=== PATIENT | female | born 1985 | race Caucasian/White ===

== ENCOUNTER → 2024-01-26 11:02 | Outpatient (REF) | payer BC, SELFPAY | LOC: RAD 11:02 | PROVIDERS: ATTENDING PHYSICIAN Physician Assistant | DX: E01.0 Iodine-deficiency related diffuse (endemic) goiter (principal) | CPT/HCPCS: 76536 ==

== ENCOUNTER → 2025-02-20 09:31 | Outpatient (REF) | payer OTHER, SELFPAY | LOC: RAD 09:31 | PROVIDERS: ATTENDING PHYSICIAN Family Medicine | DX: Z00.00 Encounter for general adult medical examination without abnormal findings (principal); E66.3 Overweight; E78.00 Pure hypercholesterolemia, unspecified; E04.1 Nontoxic single thyroid nodule | CPT/HCPCS: 76536 ==

== ENCOUNTER 2025-10-03 13:14 | Emergency (ER) | payer OTHER, SELFPAY ==
[2025-10-03 13:20] VITALS: BP 129/88
[2025-10-03 13:41] LABS: Hematocrit 40.5 % (37.0-47.0); Hemoglobin 14.0 g/dL (12.0-16.0); Mean Corp Hgb Conc. 34.6 g/dL (33.0-37.0); Mean Corpuscular Volume 88.2 fL (81.0-99.0); Nucleated Red Blood Cells % 0 %; Platelet Count 246 10^3/uL (130-400); Red Cell Dist. Width 12.4 % (11.5-14.5)
[2025-10-03 13:53] VITALS: BP 115/92
[2025-10-03 13:54] LABS: HCG, Serum Qualitative Screen Negative
[2025-10-03 14:05] LABS: ALT (SGPT) 16 U/L (0-35); AST (SGOT) 24 U/L (14-36); Albumin 4.5 g/dl (3.5-5.0); Alkaline Phosphatase 72 U/L (38-126); Blood Urea Nitrogen 18 mg/dl (7-17); Calcium 9.4 mg/dl (8.4-10.2); Carbon Dioxide 25 mmol/L (22-30); Chloride 102 mmol/L (98-107); Glucose 96 mg/dl (70-99); Potassium 3.9 mmol/L (3.5-5.1); Sodium 133 mmol/L (135-145); Total Protein 7.2 g/dl (6.3-8.2); eGFR > 60.00
[2025-10-03 14:09] LABS: Troponin I < 0.012 ng/ml
--- NOTE | 2025-10-03 15:01 | ED.GENMED ---
History of Present Illness
General
Chief Complaint: Fainting Sensation
Source: patient
Exam Limitations: none
Time Seen by Provider: 10/03/25 14:30
History of Present Illness
History of Present Illness:
Note:
CHIEF COMPLAINT(S)
Rapid heart rate and feeling of lightheadedness while walking on the treadmill.
HISTORY OF PRESENT ILLNESS
The patient is a 40-year-old female with no significant past medical history who presented to the emergency department following an episode of rapid heart rate, profuse sweating, and lightheadedness while walking on the treadmill. The event occurred
suddenly while exercising with a friend at the gym. The patient reports never experiencing such episodes before and describes the symptoms with quotes like, 'I couldnt talk' and �my heart rate was super fast.� The patient denied having a device to
monitor heart rate at the time but described feeling like her heart was pounding very fast. She also noted tingling in her fingers and an inability to catch her breath, which made her feel anxious.
The patient attempted to alleviate symptoms by sitting down and drinking water. However, her heart rate did not diminish quickly, so she decided to seek medical evaluation in the ER. She notes that her symptoms began to resolve approximately 45
minutes after the onset, though she continued to feel lightheaded for a time. Prior to this incident, the patient notes usual exercise tolerance without symptoms. She acknowledges regular caffeine consumption, including an espresso in the morning
followed by iced tea, with no additional pre-workout stimulants consumed.
EXTERNAL RECORDS REVIEWED
An electrocardiogram (EKG) was performed, which appeared normal during the evaluation, although the physician expressed a desire for comparative data from the time of the episode.
PLAN
- Ordered laboratory work to evaluate electrolyte balance and other potential contributing factors.
- Discussed the possibility of wearing a Holter monitor to track heart rhythm over several days, particularly if the symptoms reoccur.
- Plan to refer the patient to a clinical case manager for further investigation, including possible stress testing or cardiac ultrasound if needed.
- Advisement to consider wearable technology that can document heart rate changes during future episodes.
- Provided education on recognizing symptoms and recommended returning immediately if symptoms worsen or recur.
DIFFERENTIAL DIAGNOSIS
The differential diagnosis includes, in no particular order and is not limited to:
1. Supraventricular Tachycardia (SVT)
2. Atrial Fibrillation (AFIB)
3. Anxiety or Panic Attack
4. Hypoglycemia
5. Hyperthyroidism
6. Dehydration
7. Inappropriate Sinus Tachycardia
8. Premature Ventricular Contractions (PVCs)
9. Vasovagal Syncope
10. Electrolyte Imbalance
EKG
My independent EKG interpretation is:
- Normal sinus rhythm
- Heart rate: 91 bpm
- Normal axis
- Normal intervals
- No acute ischemic changes
Disposition:
SUMMARY OF ENCOUNTER
The patient is a 40-year-old female who presented to the emergency department with symptoms of a rapid heart rate, lightheadedness, and profuse sweating while exercising on a treadmill, resembling near-syncopal episodes. Additional symptoms reported
included palpitations, chest pain, and shortness of breath. The episode happened suddenly without any previous history of such symptoms. The initial evaluation in the emergency department was normal sinus rhythm upon telemonitoring, a normal basic
metabolic panel (BMP), and a negative test. Further management was discussed with Dr. Argueta of cardiology. No clinical concern for ventricular tachycardia. Question whether this could have been SVT versus A-fib versus other
supraventricular tachycardia
DISPOSITION
The patient was discharged with follow-up arrangements.
ASSESSMENT
Potential causes for the symptoms may include supraventricular tachycardia (SVT), atrial fibrillation (AFIB), anxiety or panic attack, hypoglycemia, hyperthyroidism, dehydration, inappropriate sinus tachycardia, premature ventricular contractions
(PVCs), vasovagal syncope, and electrolyte imbalance.
PLAN
- Patient advised to avoid strenuous activity until cleared by a clinical case manager.
- Cardiology follow-up arranged for Monday with Dr. Tinsleyons office.
- Discussed wearing a Holter monitor for further heart rhythm assessment.
INDEPENDENT REVIEW OF LABS AND INTERPRETATION OF TESTS
My independent review of EKG is normal sinus rhythm with heart rate 91 bpm, normal axis, normal intervals, and no acute ischemic changes.
My independent review of BMP indicates normal results.
CBC normal
PATIENT EDUCATION AND COUNSELING
The patient was educated on recognizing symptoms and advised to seek immediate medical attention if symptoms recur or worsen. She was also informed to avoid solo and strenuous physical activity until further evaluation is completed.
FOLLOW-UP INSTRUCTIONS
The patient is advised that Dr. Maurice cardiology office will contact her on Monday to schedule a follow-up, and she should refrain from strenuous activities until cleared by a clinical case manager.
MEDICAL DECISION MAKING
-Complexity of Data Reviewed: Differential diagnosis includes: Supraventricular Tachycardia (SVT), Atrial Fibrillation (AFIB), Anxiety or Panic Attack, Hypoglycemia, Hyperthyroidism, Dehydration, Inappropriate Sinus Tachycardia, Premature
Ventricular Contractions (PVCs), Vasovagal Syncope, Electrolyte Imbalance.
-Data:
Category 1
Reviewed patients BMP and EKG showing normal results; test was negative.
Category 3
Discussion of management with Dr. Argueta from cardiology, who concurs with the management plan.
-Risk:
Consideration of Admission/Observation: Escalation of care including admission/observation was considered given the complexity and risk of the patients presenting complaint, exam findings, and/or their underlying comorbidities. However, ultimately I
feel the patient is safe for outpatient management with close follow-up. Reasoning: Work-up reassuring, does not reveal any acute life/organ threatening processes, patients symptoms well controlled upon reevaluation, reexamination is reassuring,
vitals are stable, patient agreeable with discharge, reliable for follow-up.
DIAGNOSIS
- Tachycardia, unspecified (R00.0)
- Palpitations (R00.2)
- Dizziness and giddiness (R42)
Phy Exam
Physical Exam
Physical Exam:
.
Course
Orders/Labs/Results
Orders:
Orders
10/03/25 13:15
ECG [Electrocardiogram (*1)] Urgent
Reason for Study: Vertigo / Dizzy
EKG- Treatment ONCE
10/03/25 13:24
Test Result ONCE
10/03/25 13:34
Complete Blood Count/With Diff Urgent
Comprehensive Metabolic Panel Urgent
HCG, Serum Qualitative Screen Urgent
Comment: Notify provider if positive test present
Troponin I Urgent
Abnormal Lab Results
10/03/25
13:34
Sodium 133 L mmol/L
(135-145)
BUN 18 H mg/dl
(7-17)
10/03/25 13:34
10/03/25 13:34
Vital Signs
Initial and Last Documented VS:
Initial Vital Signs
Temp Pulse Resp BP Pulse Ox
97.8 F 89 16 129/88 98
10/03/25 13:20 10/03/25 13:20 10/03/25 13:20 10/03/25 13:20 10/03/25 13:20
Last Documented Vital Signs
Temp Pulse Resp BP Pulse Ox
97.8 F 75 15 115/92 98
10/03/25 13:20 10/03/25 14:30 10/03/25 14:30 10/03/25 13:53 10/03/25 15:02
*Pulse Oximetry
SaO2: 98
Oxygen Mode of Delivery: Room air
Patient hypoxic: no
*Critical Care Note
Total Time (30-74mins, 75-104mins- exclusive of procedures): Not Applicable
ED Attending Note
-
Portions of this chart may have been created with voice recognition software.� Occasional wrong word or��sound alike� substitutions may have occurred due to the inherent limitations of voice recognition software.
Discharge Plan
Departure
Patient Disposition: Home (Routine Discharge)
Date of Disposition: 10/03/25
Time of Disposition: 15:02
Patient with high blood pressure during this ER visit?: No
Discharge Problem:
Palpitations, Near syncope
Instructions: Near Fainting (DC), Palpitations, Chest Pain CBC Follow Up
Referrals:
Venice Pat MD [Family Provider, Family Practice]
Activity Restrictions/Additional Instructions:
Please avoid strenuous or exertional activity until cleared by cardiology. Please drink plenty fluids as discussed. Return immediately for palpitations, passing out episode, lightheadedness, chest pain, shortness of breath, weakness of any kind or
any other concerns.
Interventions
Interventions:
*Risk Screen - Suicide Last Done: 10/03/25 13:20
*Neglect/Abuse Screening Last Done: 10/03/25 13:20
*ED COVID-19 Vaccine History Last Done: 10/03/25 14:32
*ED Influenza Vaccine History Last Done: 10/03/25 14:32
ED- Cardiac Assessment Last Done: 10/03/25 15:00
ED- Neurological Assessment Last Done: 10/03/25 15:00
Discharge Date and Time
Print Language: VINCENTIAN
== END 2025-10-03 15:28 | disposition home or self-care (01) ==
LOC: EMR 13:14
PROVIDERS: Emergency Medicine; EMERGENCY PHYSICIAN Emergency Medicine; FAMILY PHYSICIAN Family Medicine
DX: R00.2 Palpitations (principal); R55 Syncope and collapse
CPT/HCPCS: 99284; 80053; 84484; 84703; 85025; 93005

== ENCOUNTER → 2025-10-27 14:08 | Outpatient (REF) | payer OTHER, SELFPAY | LOC: RCS 14:08 | PROVIDERS: ATTENDING PHYSICIAN Student in an Organized Health Care Education/Training Program; FAMILY PHYSICIAN Physician Assistant | DX: I47.10 Supraventricular tachycardia, unspecified (principal) | CPT/HCPCS: 93306 ==